=== PATIENT | female | born 1935 ===

== ENCOUNTER 2019-05-26 09:07 | Outpatient (CLI) | payer OTHER ==
[~2019-05-26] VITALS: Ht 157.5 cm; Wt 60.8 kg
== END 2019-05-26 12:30 | disposition home or self-care (01) ==
LOC: OFIC 805 09:07
DX: H90.3 Sensorineural hearing loss, bilateral (principal); H61.21 Impacted cerumen, right ear; S00.511A Abrasion of lip, initial encounter

== ENCOUNTER 2019-08-11 08:37 | Outpatient (CLI) | payer OTHER ==
[~2019-08-11] VITALS: Ht 152.4 cm; Wt 59.0 kg
== END 2019-08-11 12:47 | disposition home or self-care (01) ==
LOC: OFIC 805 08:37
DX: H90.42 Sensorineural hearing loss, unilateral, left ear, with unrestricted hearing on the contralateral side (principal); H90.12 Conductive hearing loss, unilateral, left ear, with unrestricted hearing on the contralateral side; J31.0 Chronic rhinitis; H61.23 Impacted cerumen, bilateral; S00.501A Unspecified superficial injury of lip, initial encounter